=== PATIENT | female | born 1960 | race Caucasian/White ===

== ENCOUNTER → 2021-03-20 | Outpatient (CLI) | payer BC ==
[~2021-03-20] MED LIST: HYDROCODONE-AP1 EACH PO; TRAMADOL 50 MG50 MG PO
--- NOTE | ~2021-03-20 | HPC ---
[facility] [place] [address] PAIN MANAGEMENT CONSULTATION Name: PATRICK FISHER Room #: REG NADYA [facility]ausch.#: [id number] Admission: 03/20/21 Attend Phys: Alejandro Gamino DO Discharge: Date of : 64 Report #: [id number] THIS REPORT FOR: cc: Huy Mai MD, Jr., M. Scott MD Johnson, James E. DO ~ cc: Huy Mai MD DATE OF SERVICE: 03/20/2021 REFERRING NEUROSURGEON: Dr. Huy Mai. CHIEF COMPLAINT: Low back pain, right lower extremity pain with paresthesias. HISTORY OF PRESENT ILLNESS: As you know, the patient is a 60-year-old female reporting longstanding history of low back pain, right lower extremity pain with paresthesias, for which she states the pain began in 04/2019. She denies specific injury or trauma. She has trialled conservative treatment options such as physical therapy, but did not notice benefit. She saw Dr. Hodge with pain management and underwent 2 epidural injections under fluoroscopic guidance, the first being beneficial lasting for about 4 weeks, the second providing no benefit. She then saw Dr. Gilmore at regarding this ongoing issue. She was having weakness in the right lower extremity and had ambulate with a cane. Due to lack of improvement with conservative treatment and recent findings on physical exam, the patient was referred to neurosurgery to discuss surgical options. She saw Dr. Huy Mai in consultation on 02/27/2021 where she was evaluated and advised to trial a possible spinal cord stimulator to improve overall pain. She was subsequently referred on to our clinic to discuss that option. The patient indicates today her pain is continuous and constant. Describes the pain more of a burning, shooting, aching, gnawing, sharp, stabbing, numbness and tingling. Places current pain score of 5/10. Daily average of 5/10, worst pain has been is 10/10. The patient states pain is exacerbated with activity. There appears to be nothing that has improved the symptoms today. She has been referred to our service by her neurosurgeon, Dr. Huy Mai to discuss the possibility of undergoing spinal cord stimulator trial implantation to determine if her symptoms would be amenable to this type of procedure. PAST MEDICAL HISTORY: 1. Bleeding diathesis. 2. Endometrial adenomas and skin cancer. 3. Heart murmur. 4. Chronic kidney disease. 5. Nephrolithiasis. 6. History of shingles. [facility] [address] [place] [address] PAIN MANAGEMENT CONSULTATION Name: PATRICK FISHER Room #: REG [facility].#: [id number] Admission: 03/20/21 Attend Phys: Alejandro Gamino DO Discharge: Date of : 64 Report #: [id number] PAST SURGICAL HISTORY: 1. Hysterectomy for endometrial cancer. 2. Treatment for kidney stones. SOCIAL HISTORY: The patient denies tobacco, alcohol or IV illicit drug use. 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 She is working part-time, not receiving workmen's compensation nor is she trying to obtain disability benefits. Not in litigation in regards to her pain. She is unaccompanied at today's visit. REVIEW OF SYSTEMS: Positive for weight change, decrease in appetite, night sweats, fatigue and weakness, wearing corrective eyewear, frequent urination, nocturia, incontinence and dribbling to urine. Not blood in urine, change of force or stream urination, kidney stones and discharge, sexual difficulty, numbness and tingling sensations and tremors. All other review of systems negative per 12-point review of systems other than those listed in history of present illness. Pain impact score 53/70, severe interference of daily activities secondary to pain. ALLERGIES: NONSTEROIDAL ANTI-INFLAMMATORIES, STATINS, GABAPENTIN and LYRICA. CURRENT MEDICATIONS: Hydrocodone 10/325 one tab p.o. q. 8 hours p.r.n. for pain, tramadol 50 mg p.o. q. 8 hours p.r.n. [id number] pain. IMAGING: MRI lumbar spine obtained on 02/18/2021 shows L1-L2 unremarkable. L2-L3 shows generalized disk bulge eccentric towards the right, moderate hypertrophic facet degenerative changes, no significant central canal neural foraminal stenosis. L3-L4 shows moderate hypertrophic posterior degenerative changes, no central canal neural foraminal stenosis. L4-L5 shows generalized disk bulge, [id number] hypertrophic facet degenerative changes with ligamentum flavum hypertrophy, mild central canal stenosis, mild bilateral neural foraminal narrowing, mild right neural foraminal narrowing, no significant left. L5-S1 unremarkable. PHYSICAL EXAMINATION: VITAL SIGNS: Blood pressure 127/79, pulse is 83, respiratory rate 16 and unlabored. The patient 100% on room air. Height 5 feet 5 inches tall, weight 160 pounds. GENERAL: Well-developed, well-nourished, well-hydrated 60-year-old female appearing stated age. Current pain score is rated at 5/10. HEENT: Normocephalic, atraumatic. Pupils equal, round and responsive to light. Extraocular muscles are intact. Speech is fluent. The patient deemed a fair historian. She is wearing a mask in compliance with COVID-19 regulations. LUNGS: Clear. No wheeze, rhonchi. No rales. CARDIOVASCULAR: Regular. No appreciable gallop, no rub. There is no [facility] [address] [place] [address] PAIN MANAGEMENT CONSULTATION Name: PATRICK FISHER Room #: REG [facility].#: [id number] Admission: 03/20/21 Attend Phys: Alejandro Gamino DO Discharge: Date of : 64 Report #: [id number] appreciable murmur. ABDOMEN: Soft. EXTREMITIES: Show no clubbing, no cyanosis. No appreciable edema. MUSCULOSKELETAL: Lower extremity strength equal and symmetrical 5/5 except for dorsiflexion of the right foot, which shows 0/5. This is also noted a 4/5 right hip flexor compared to the left. Otherwise, remainder of muscle tone 5/5. There is no change in muscle bulk and tone when comparing lower extremities. There is an antalgic steppage like gait on the right with foot drop. She is utilizing a cane for ambulation. She is intact to light touch from L1 through S2 dermatomes except over the right foot, which has decreased tactile sensation globally. Reflexes are decreased, but symmetrical at the patella and Achilles. ASSESSMENT: 1. Lumbar radiculopathy. 2. Lumbosacral spondylosis with radiculopathy. 3. Chronic low back pain. PLAN: 1. The patient has been referred to our service by her neurosurgeon to discuss the possibility of looking towards a spinal cord stimulator to address ongoing back and right lower extremity pain. We have reviewed with the patient her recent MRI, correlating those findings to her symptoms, this took over 15 minutes in time. We also discussed with the patient the lack of significant efficacy with epidural injections provided in the past. This ultimately prompted a referral to Dr. Mai who advised the patient at this time she is not a surgical candidate, but to look towards a possible spinal cord stimulator as a treatment course. She was referred on to our clinic to discuss that option for treatment. We have discussed with the patient the effects and the benefits of a dorsal column stimulator. We also discussed the risks of that device. She is interested in moving forward with the device itself. We discussed that process in its entirety today. The patient is agreeable to begin that process. 2. The patient will be sent for psychiatric evaluation. She was given the names and numbers of psychiatrists in the area that performed evaluation for this type of device. We will start that process immediately. The patient will contact Psychiatry and obtain an appointment for evaluation for this spinal cord stimulator trial. Once the patient has completed this psychiatric evaluation and she is deemed an appropriate candidate, we will then begin our process of prior authorizations to have the patient undergo the procedure, assuming no psychopathology that would preclude the patient from undergoing the device implant. 3. No medication changes made at today's visit. The patient will continue current medical therapy as prior prescribed. 4. We will see the patient back in followup visit once she has completed her psychiatric evaluation to review those findings and begin scheduling for a [address] [address] PAIN MANAGEMENT CONSULTATION Name: PATRICK FISHER Room #: REG NADYA [place]#: [id number] Admission: 03/20/21 Attend Phys: Alejandro Gamino DO Discharge: Date of : 64 Report #: [id number] temporary implant with the [employer] device. We are hopeful the patient will be able to see Psychiatry quickly and begin the process of authorization to undergo the trial implantation requested by Dr. Mai. 5. We wish to thank Dr. Mai for the referral of the patient to our clinic. We will keep you apprised of response to treatment as we address lumbar radicular symptoms with spinal cord stimulator trial implantation. We will keep you apprised of our progress and her response. Again, we wish to thank you for the opportunity to see the patient in consultation. By: [id number] Alejandro Gamino DO /nt
[2021-03-20 10:41] VITALS: BP 127/79
--- NOTE | 2021-03-20 10:49 | NUR ---
Pain Clinic Assessment: 1. History of Osteoarthritis: Not Applicable History of Rheumatoid Arthritis: Not Applicable 2. Height: 5 ft. in. 152.4 cm. Weight: lb. oz. kg. Patient's BMI: 3. Vital Signs: BP: 127/79 Pulse: 83 Resp: 16 Temp: 02 Sat: 100 ECG Mon: 4. Pain Intensity: 5 5. Fall Risk: Dizziness: N Needs help standing or walking: Y Fallen in the last 3 months: Y Fall risk comments: 6. Patient on Blood Thinner: None 7. History of Hypertension: N 8. Opioid Therapy greater than 6 weeks: Opiate Contract Signed: 9. Risk Assessment Tool Provided: 0 LOW RISK 10. Functional Assessment Tool: 53/70 11. Recreational Drug Use: Never Drug Type: Tobacco Use: Never Smoker Tobacco Type: Amount or Packs/day: How Many Years: Alcohol Use: No Frequency: Quant:
== END ==
LOC: PAIN 03-13 12:25
PROVIDERS: ATTEND Anesthesiology Pain Medicine
DX: G89.29 Other chronic pain (principal); M47.27 Other spondylosis with radiculopathy, lumbosacral region; M79.661 Pain in right lower leg; N18.9 Chronic kidney disease, unspecified; Z90.710 Acquired absence of both cervix and uterus; Z85.89 Personal history of malignant neoplasm of other organs and systems